=== PATIENT | female | born 1950 | race Caucasian/White ===

== ENCOUNTER 2017-11-04 10:45 | Day surgery (SDC) | payer MEDICARE ==
[2017-11-04] VITALS (10 sets, daily range): BP systolic 111–139; BP diastolic 67–86
[2017-11-04] MEDS ORDERED: FLUO20CA39 PO (11:26)
[2017-11-04] MEDS ORDERED: METO25TA6 PO (11:26)
[2017-11-04] MEDS ORDERED: METF500T PO (11:26)
[2017-11-04] MEDS ORDERED: ASCO500C15 PO (11:26)
[2017-11-04] MEDS ORDERED: CHOL100046 PO (11:26)
[2017-11-04] MEDS ORDERED: LOSA25TA96 PO (11:26)
[2017-11-04] MEDS ORDERED: PRAV20TA4 PO (11:26)
[2017-11-04] MEDS ORDERED: OMEP20TA5 PO (11:26)
[2017-11-04] MEDS ORDERED: TRAM50TA2 PO (11:26)
[2017-11-04] MEDS ORDERED: FLO0.4C PO (11:26)
[2017-11-04] MEDS ORDERED: LEVO75TA PO (11:26)
[2017-11-04] MEDS ORDERED: ASPI-1265 PO (11:28)
[2017-11-04] MEDS ORDERED: LORazepam 0.5 MG tablet PO PRN (11:55)
[2017-11-04] MEDS ORDERED: diphenhydrAMINE 25mg capsule PO PRN (11:55)
[2017-11-04] MEDS ORDERED: normal saline 1000ml 1,000 ML IV SCH (11:55)
[2017-11-04] MEDS ORDERED: iohexol 350MG/ML 100ml bottle IV ONE (13:54)
[2017-11-04] MEDS ORDERED: LIDOcaine 1% 30ml preserv. free vial ONE (13:54)
[2017-11-04] MEDS ORDERED: midazolam 2 mg/2 ml injection ONE (14:05)
[2017-11-04] MEDS ORDERED: fentaNYL/PF 50MCG/1 ML 2ML syringe ONE (14:05)
[2017-11-04] MEDS ORDERED: proCHLORperazine 10 MG/2 ml inj IV PRN (15:20)
[2017-11-04] MEDS ORDERED: OXAZEpam 15mg capsule PO PRN (15:20)
[2017-11-04] MEDS ORDERED: ondansetron/PF 4mg/2ml inj IV PRN (15:20)
[2017-11-04] MEDS ORDERED: HYDROcodone/acetaminophen 10/325mg tab PO PRN (15:20)
[2017-11-04] MEDS ORDERED: HYDROcodone/acetaminophen 5mg/325mg tablet PO PRN (15:20)
[2017-11-04] MEDS ORDERED: nitroGLYCERIN 0.4mg SUBLingual tab SL PRN (15:20)
== END 2017-11-04 18:55 | disposition home or self-care (01) ==
LOC: SSTAY O 10:45
PROVIDERS: ATTEND Internal Medicine Interventional Cardiology
DX: I25.119 Atherosclerotic heart disease of native coronary artery with unspecified angina pectoris (principal); E11.9 Type 2 diabetes mellitus without complications; G47.33 Obstructive sleep apnea (adult) (pediatric); E03.9 Hypothyroidism, unspecified; I25.82 Chronic total occlusion of coronary artery; I10 Essential (primary) hypertension; E78.5 Hyperlipidemia, unspecified; J44.9 Chronic obstructive pulmonary disease, unspecified; M19.90 Unspecified osteoarthritis, unspecified site; F32.9 Major depressive disorder, single episode, unspecified; Z90.89 Acquired absence of other organs; Z90.710 Acquired absence of both cervix and uterus; Z85.038 Personal history of other malignant neoplasm of large intestine; Z87.891 Personal history of nicotine dependence; Z79.82 Long term (current) use of aspirin; Z79.84 Long term (current) use of oral hypoglycemic drugs; Z79.891 Long term (current) use of opiate analgesic; Z79.899 Other long term (current) drug therapy; Z98.890 Other specified postprocedural states; Z88.2 Allergy status to sulfonamides; Z88.6 Allergy status to analgesic agent; Z88.8 Allergy status to other drugs, medicaments and biological substances
CPT/HCPCS: 82948; 93005; 93458; 99152; 99153; A6257; C1769; J1644; J2250; J3010; J3490; J7030; Q0163; Q9967; A4620

== ENCOUNTER 2018-01-13 07:58 | Emergency (ER) | payer MEDICARE ==
[~2018-01-13] VITALS: Ht 162.6 cm; Wt 86.0 kg
[~2018-01-13 07:58] MED LIST: ASCO500C15 PO; ASPI-1265 PO; CHOL100046 PO; COL100C PO; FLUO20CA39 PO; HYDR-3972 PO; LEVO75TA PO; METF1000 PO; METO25TA6 PO; OMEP20TA5 PO; PRAV20TA4 PO
[2018-01-13] MEDS ORDERED: fluconazole 100mg tablet PO ONE (08:20)
[2018-01-13 08:35] VITALS: BP 152/94
== END 2018-01-13 08:39 | disposition home or self-care (01) ==
LOC: ER 07:58
DX: L30.8 Other specified dermatitis (principal); R22.2 Localized swelling, mass and lump, trunk; I25.10 Atherosclerotic heart disease of native coronary artery without angina pectoris; I10 Essential (primary) hypertension; J44.9 Chronic obstructive pulmonary disease, unspecified; E11.9 Type 2 diabetes mellitus without complications; Z85.038 Personal history of other malignant neoplasm of large intestine; Z95.1 Presence of aortocoronary bypass graft; Z88.2 Allergy status to sulfonamides; Z88.5 Allergy status to narcotic agent; Z88.8 Allergy status to other drugs, medicaments and biological substances; Z79.82 Long term (current) use of aspirin; Z79.84 Long term (current) use of oral hypoglycemic drugs; Z79.899 Other long term (current) drug therapy
CPT/HCPCS: 99282

== ENCOUNTER 2023-05-01 12:19 | Outpatient (CLI) | payer MEDICARE ==
[~2023-05-01 12:19] MED LIST changes: -ASCO500C15 PO; +ATOR40TA PO; -CHOL100046 PO; -COL100C PO; +FLO0.4C PO; +GABA-532 PO; -HYDR-3972 PO; +HYDR-4383 PO; +LEVO750T21 PO; +LOP25T PO; +LOSA-415 PO; -METF1000 PO; +METF500T PO; -METO25TA6 PO; +NYSPWD TP; +OMEP20TA43 PO; -OMEP20TA5 PO; -PRAV20TA4 PO
== END 2023-05-01 23:59 | disposition home or self-care (01) ==
LOC: RAD 12:19
PROVIDERS: ATTEND Nurse Practitioner Family
DX: I63.40 Cerebral infarction due to embolism of unspecified cerebral artery (principal); R51.9 Headache, unspecified
CPT/HCPCS: 70551